=== PATIENT | female | born 1980 | race Two or more races ===

== ENCOUNTER 2016-07-24 10:18 | Emergency (ER) | payer OTHER ==
[~2016-07-24] VITALS: Ht 162.6 cm; Wt 79.8 kg
--- NOTE | 2016-07-24 10:50 | PHYS DOC ---
General Chief Complaint: VAGINAL BLEEDING Stated Complaint: VAGINAL BLEEDING/CRAMPS, 5 WEEKS PREG Time Seen by MD: 10:20 Source: patient Exam Limitations: no limitations Problems: History of Present Illness Initial Comments Pt is 36/F to ED c/o possible . Pt is now A1, LMP 4/ with + home urine test. No established OB, pt tried to make appointment a few weeks ago but was told she would not be seen until 12 wks gestation. Pt is monogamous, states that since Wednesday she's had low abdominal, b/l adnexal and flank tightness/discomfort as well as vaginal bleeding. Mild nausea , no emesis. Described as bright red, up to 2 pads/day no clots or solid materials passed. Pt mother last week pt has been very emotional and is tearful at times in ED. Pt has h/o incomplete miscarriage as well as retained placenta in past both requiring D/Cs. No fever/chills/dysuria/hematuria/dyspareunia/emesis/stool changes. ED VS: 98.2, 94, 18, 129/85, 96% RA. Timing/Duration: other (3 days, ) Severity: mild Modifying Factors: improves with other Associated Symptoms: nausea/vomiting, other Allergies: Coded Allergies: No Known Drug Allergies (Unverified , 07/24/16) Past Medical History Medical History: no pertinent history Surgical History: other (D/C x 2) MARKETING LEAD History: spontaneous , other Para: 3 : 5 LMP (Females 10-50): (05/30) Social History Smoker: cigarettes Alcohol: none Drugs: none Review of Systems Constitutional: denies chills, denies diaphoresis, denies fever, denies malaise Respiratory: denies cough, denies shortness of breath, denies wheezing Cardiovascular: denies chest pain, denies edema, denies palpitations, denies syncope Gastrointestinal: see HPI Genitourinary: see HPI Musculoskeletal: see HPI, denies joint swelling, denies neck pain Psychiatric/Neurological: denies headache, denies numbness, denies paresthesia Physical Exam General Appearance: WD/WN, mild distress (tearful) Eyes: bilateral eye normal inspection, bilateral eye PERRL, bilateral eye EOMI Ear, Nose, Throat: hearing grossly normal, normal ENT inspection, normal pharynx Neck: non-tender, supple Respiratory: normal breath sounds, no respiratory distress Cardiovascular: normal peripheral pulses, regular rate, rhythm, no edema Gastrointestinal: soft (BS diminished, mild general TTP no r/g/mass, neg mcburney/jang) Back: no vertebral tenderness, CVA tenderness (R) Extremities: normal inspection, no pedal edema 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 PHYSICIAN: CRUZ DA SILVA DO REASON: cramping/bleeding since Tues, LMP 05/30 PROCEDURE: OB <14 WKS W/TV Obstetrical ultrasound, 07/24/2016: History: Bleeding and cramping, Transabdominal and transvaginal scans were obtained. The uterus is enlarged. It contains a single gestational sac. The gestational sac contains a pole demonstrating a crown-rump length of 2.2 cm. This suggests suggests a gestational age of 8 weeks and 6 days and a sonographic EDC of 02/27/2017. motion and cardiac activity is present. The heart rate was 170 bpm. Adjacent to the gestational sac there is heterogeneous material probably representing subchorionic hemorrhage. This process measures 4.3 x 3.1 x 4.2 cm. The uterus is otherwise unremarkable. The ovaries are of normal size. No adnexal mass is seen. No free fluid is present in the pelvis. IMPRESSION: 1. Single viable intrauterine fetus of 8-9 weeks gestational age. 2. Moderate sized subchorionic hemorrhage. DICTATED AND SIGNED BY: ESPERANZA VALDEZ MD DATE: 07/24/16 1132 CC: PCP,UNKNOWN; CRUZ DA SILVA DO ~ Labs/urine reassuring. I discussed light activity/pelvic rest, stopping smoking and starting vitamins at length with pt and answered her questions. No bleeding thru ED course, no new/progressive sx. Pt reassured, expresses agreement/understanding with treatment plan. Departure Time of Disposition: 11:46 Disposition: 01 HOME, SELF-CARE Diagnosis: , subchorionic hemorrhage, tobaccoism Condition: STABLE Patient Instructions: Medicines During , Smoking Cessation, Subchorionic Hematoma Additional Instructions: Stop smoking today, seek medical assistance if necessary. Begin vitamins today. Pelvic rest and light activity until cleared by ADMIN PROG COORD. Aggressive hydration with gatorade, water. You will need to follow up with an obstetric specialist. Dr Corey, [facility] [phone] call today to schedule next available appointment. Return to ED with new or changing symptoms. CRUZ DA SILVA DO July 24, 2016 10:50
[2016-07-24 11:00] LABS: BASO # 0.1 x10^3/uL (0.0-0.2); BASO % 1 % (0-3); EOS # 0.1 x10^3/uL (0.0-0.7); EOS % 1 % (0-3); HEMOGLOBIN 12.8 g/dL (12.0-15.5); LYMPH % 27 % (24-48); MEAN CORPUSCULAR HEMOGLOBIN 30 pg (25-35); MEAN CORPUSCULAR HGB CONC 34 g/dL (31-37); MEAN CORPUSCULAR VOLUME 90 fL (79-100); MONO # 0.6 x10^3/uL (0.0-1.1); MONO % 6 % (0-9); NEUT # 7.1 x10^3uL (1.8-7.7); NEUT % 65 % (31-73); PLATELET COUNT 423 x10^3/uL (140-400); RED BLOOD COUNT 4.25 x10^6/uL (3.50-5.40); RED CELL DISTRIBUTION WIDTH 13.9 % (11.5-14.5); WHITE BLOOD COUNT 10.9 x10^3/uL (4.0-11.0)
[2016-07-24] MEDS ORDERED: IV NORMAL SALINE 1,000ML 1,000 ML IV SCH (11:00)
[2016-07-24] MEDS ORDERED: ONDANSETRON PF 4 MG/2 ML VIAL. IV ONE (11:00)
[2016-07-24 11:16] LABS: ALBUMIN 3.3 g/dL (3.4-5.0); CALCIUM 9.1 mg/dL (8.5-10.1); CREATININE 0.7 mg/dL (0.6-1.0); DIRECT BILIRUBIN 0.1 mg/dL (0.0-0.2); GFR 95.2; POTASSIUM 4.1 mmol/L (3.5-5.1); TOTAL BILIRUBIN 0.2 mg/dL (0.2-1.0); TOTAL PROTEIN 7.2 g/dL (6.4-8.2)
[2016-07-24 11:23] LABS: BACTERIA,URINE FEW /HPF (0-FEW); BILIRUBIN,URINE NEG (NEG); CLARITY,URINE CLOUDY; COLOR,URINE YELLOW; GLUCOSE,URINE NEG (NEG); NITRITE,URINE NEG (NEG); SQUAMOUS EPITHELIAL CELL,UR MOD /LPF; UROBILINOGEN,URINE 0.2 mg/dL (0.2 mg/dL); WBC,URINE 0 /HPF (0-4)
--- NOTE | 2016-07-24 11:38 | RAD ---
Obstetrical ultrasound, 07/24/2016: History: Bleeding and cramping, Transabdominal and transvaginal scans were obtained. The uterus is enlarged. It contains a single gestational sac. The gestational sac contains a pole demonstrating a crown-rump length of 2.2 cm. This suggests suggests a gestational age of 8 weeks and 6 days and a sonographic EDC of 02/27/2017. motion and cardiac activity is present. The heart rate was 170 bpm. Adjacent to the gestational sac there is heterogeneous material probably representing subchorionic hemorrhage. This process measures 4.3 x 3.1 x 4.2 cm. The uterus is otherwise unremarkable. The ovaries are of normal size. No adnexal mass is seen. No free fluid is present in the pelvis. IMPRESSION: 1. Single viable intrauterine fetus of 8-9 weeks gestational age. 2. Moderate sized subchorionic hemorrhage.
[2016-07-24 11:53] VITALS: BP 122/95
== END 2016-07-24 12:05 | disposition home or self-care (01) ==
LOC: ER 10:18
DX: O46.91 Antepartum hemorrhage, unspecified, first trimester (principal); O99.331 Smoking (tobacco) complicating pregnancy, first trimester; Z3A.08 8 weeks gestation of pregnancy
CPT/HCPCS: 36415; 76801; 76817; 80048; 80076; 81001; 83735; 84702; 85027; 96361; 96374; 99285; J2405; J7030

== ENCOUNTER 2020-04-24 14:43 | Emergency (ER) | payer OTHER ==
[~2020-04-24] VITALS: Ht 162.6 cm; Wt 84.1 kg
[2020-04-24] MEDS ORDERED: IV RINGERS SOLUTION,LACTATED 1,000 ML IV ONE (15:45)
[2020-04-24] MEDS ORDERED: IOHEXOL 300 MG/ML 75 ML VIAL. IV ONE (15:45)
[2020-04-24 16:04] LABS: BASO # 0.1 x10^3/uL (0.0-0.2); BASO % 1 % (0-3); EOS # 0.1 x10^3/uL (0.0-0.7); EOS % 1 % (0-3); HEMOGLOBIN 13.3 g/dL (12.0-15.5); LYMPH # 3.7 x10^3/uL (1.0-4.8); LYMPH % 22 % (24-48); MEAN CORPUSCULAR HEMOGLOBIN 29 pg (25-35); MEAN CORPUSCULAR HGB CONC 33 g/dL (31-37); MEAN CORPUSCULAR VOLUME 91 fL (79-100); MONO # 0.9 x10^3/uL (0.0-1.1); MONO % 5 % (0-9); NEUT # 11.9 x10^3uL (1.8-7.7); NEUT % 71 % (31-73); PLATELET COUNT 585 x10^3/uL (140-400); RED BLOOD COUNT 4.53 x10^6/uL (3.50-5.40); WHITE BLOOD COUNT 16.6 x10^3/uL (4.0-11.0)
[2020-04-24 16:05] LABS: CALCIUM 9.2 mg/dL (8.5-10.1); CREATININE 0.8 mg/dL (0.6-1.0); GFR 79.9; POTASSIUM 3.9 mmol/L (3.5-5.1)
--- NOTE | 2020-04-24 16:08 | RAD ---
CT abdomen and pelvis with contrast PQRS statement: CT scans at this facility use dose reduction including either automated exposure cont rol, iterative reconstructions, and /or weight based radiation dosing via mA and kV modification when appropriate to reduce radiation dose to as low as reasonably achievable. Contrast: 75 mL Isovue-370 intravenous contrast. HISTORY: Right lower quadrant abdominal pain. Abdomen findings: Lung bases unremarkable. Disc bulges lower lumbar spine with probable spinal canal stenosis at L5-S1. Liver, gallbladder, spleen, small accessory spleen, adrenals, pancreas and right k idney are unremarkable. Left renal interpolar 3 cm round hypodense lesion measuring 8 units in densit y consistent with cyst. The appendix is negative. No obstruction or inflammation the GI tract. No abd ominal fluid or adenopathy. Pelvis findings: There is mild prominence of the uterus. 2 cm hypodense focus right ovary. Left ovary , bladder, rectum and bones are unremarkable. No adenopathy. Miniscule volume of fluid cul-de-sac. IMPRESSION: 1. No acute process in the abdomen. Appendix is negative. 2. 2 cm hypodense lesion of the right ovary, most likely a follicle. No ovarian cyst is not excluded. This could be further assessed with pelvic sonography. 3. Other incidental findings as described above. Electronically signed by: Tomás Buckley MD (04/24/2020 4:06 PM) [facility]
[2020-04-24 16:09] LABS: AMPHETAMINE/METHAMPHETAMINE NEG (NEG); BARBITURATES NEG (NEG); BENZODIAZEPINES NEG (NEG); CANNABINOIDS POS (NEG); COCAINE NEG (NEG); METHADONE NEG (NEG); OPIATES NEG (NEG); PHENCYCLIDINE NEG (NEG)
[2020-04-24 16:10] LABS: ALBUMIN 3.7 g/dL (3.4-5.0); ALBUMIN/GLOBULIN RATIO 0.9 (1.0-1.7); TOTAL BILIRUBIN 0.4 mg/dL (0.2-1.0)
[2020-04-24 16:23] LABS: BACTERIA,URINE FEW /HPF (0-FEW); BILIRUBIN,URINE NEG (NEG); CLARITY,URINE CLEAR; COLOR,URINE YELLOW; GLUCOSE,URINE NEG (NEG); NITRITE,URINE NEG (NEG); SQUAMOUS EPITHELIAL CELL,UR MANY /LPF; UROBILINOGEN,URINE 0.2 mg/dL (0.2 mg/dL)
--- NOTE | 2020-04-24 16:48 | PHYS DOC ---
Past History Past Medical History: Other Additional Past Medical Histor: High Cholesterol Past Surgical History: Tubal ligation Additional Smoking Information: 1 pack per 2-3 days. Alcohol Use: Heavy Additional Alcohol Information: Drinks daily. 2-3 hard seltzer. Drug Use: None General Adult EDM: Chief Complaint: ABDOMINAL PAIN HPI: HPI: Patient is a [age] year old [sex] who presents with [] Review of Systems: Review of Systems: Constitutional: Denies fever or chills Eyes: Denies change in visual acuity HENT: Denies nasal congestion or sore throat Respiratory: Denies cough or shortness of breath Cardiovascular: Denies chest pain or edema GI: Denies abdominal pain, nausea, vomiting, bloody stools or diarrhea : Denies dysuria Musculoskeletal: Denies back pain or joint pain Integument: Denies rash Neurologic: Denies headache, focal weakness or sensory changes Endocrine: Denies polyuria or polydipsia Lymphatic: Denies swollen glands Psychiatric: Denies depression or anxiety Current Medications: Current Meds: Current Medications Medications (Trade) Dose Ordered Sig/Alcides Start Time Stop Time Status Last Admin Dose Admin Iohexol (Omnipaque 300 Mg/ml) 75 ml 1X ONCE 04/24/20 15:45 04/24/20 15:46 DC 04/24/20 15:50 75 ML Lactated Ringer's 1,000 ml @ 1,000 mls/hr 1X ONCE 04/24/20 15:45 04/24/20 16:44 DC 04/24/20 15:47 1,000 MLS/HR Allergies: Allergies: Allergies Coded Allergies Type Severity Reaction Last Updated Verified No Known Drug Allergies 04/24/20 No Physical Exam: PE: Constitutional: Well developed, well nourished, no acute distress, non-toxic appearance. HENT: Normocephalic, atraumatic, Eyes: EOMI, conjunctiva normal, no discharge. Neck: Normal range of motion, supple, Cardiovascular: S1/2 present, regular rhythm Lungs & Thorax: Speaking in full sentences, bilateral equal chest rise, no tachypnea or increased work of breathing Abdomen: soft, no tenderness, Skin: Warm, dry, no erythema, no rash. [] Back: No tenderness, no CVA tenderness. [] Extremities: No tenderness, no cyanosis, no lower extremity edema Neurologic: Alert and oriented X 3, normal motor function, normal sensory function, no focal deficits noted. [] Psychologic: Affect normal, judgement normal, mood normal. [] Current Patient Data: Labs: Laboratory Tests Test 04/24/20 15:00 White Blood Count 16.6 x10^3/uL (4.0-11.0) H Red Blood Count 4.53 x10^6/uL (3.50-5.40) Hemoglobin 13.3 g/dL (12.0-15.5) Hematocrit 41.0 % (36.0-47.0) Mean Corpuscular Volume 91 fL (79-100) Mean Corpuscular Hemoglobin 29 pg (25-35) Mean Corpuscular Hemoglobin Concent 33 g/dL (31-37) Red Cell Distribution Width 16.0 % (11.5-14.5) H Platelet Count 585 x10^3/uL (140-400) H Neutrophils (%) (Auto) 71 % (31-73) Lymphocytes (%) (Auto) 22 % (24-48) L Monocytes (%) (Auto) 5 % (0-9) Eosinophils (%) (Auto) 1 % (0-3) Basophils (%) (Auto) 1 % (0-3) Neutrophils # (Auto) 11.9 x10^3uL (1.8-7.7) H Lymphocytes # (Auto) 3.7 x10^3/uL (1.0-4.8) Monocytes # (Auto) 0.9 x10^3/uL (0.0-1.1) Eosinophils # (Auto) 0.1 x10^3/uL (0.0-0.7) Basophils # (Auto) 0.1 x10^3/uL (0.0-0.2) Platelet Estimate Pending Urine Collection Type Unknown Urine Color Yellow Urine Clarity Clear Urine pH 7.0 Urine Specific Gonzales 1.015 Urine Protein Neg (NEG-TRACE) Urine Glucose (UA) Neg mg/dL (NEG) Urine Ketones (Stick) Neg mg/dL (NEG) Urine Blood Small (NEG) Urine Nitrite Neg (NEG) Urine Bilirubin Neg (NEG) Urine Urobilinogen Dipstick 0.2 mg/dL (0.2 mg/dL) Urine Leukocyte Esterase Neg (NEG) Urine RBC 3-5 /HPF (0-2) Urine WBC 1-4 /HPF (0-4) Urine Squamous Epithelial Cells Many /LPF Urine Bacteria Few /HPF (0-FEW) Sodium Level 138 mmol/L (136-145) Potassium Level 3.9 mmol/L (3.5-5.1) Chloride Level 101 mmol/L (98-107) Carbon Dioxide Level 26 mmol/L (21-32) Anion Gap 11 (6-14) Blood Urea Nitrogen 9 mg/dL (7-20) Creatinine 0.8 mg/dL (0.6-1.0) Estimated GFR (Cockcroft-Gault) 79.9 BUN/Creatinine Ratio 11 (6-20) Glucose Level 85 mg/dL (70-99) Calcium Level 9.2 mg/dL (8.5-10.1) Total Bilirubin 0.4 mg/dL (0.2-1.0) Aspartate Amino Transferase (AST) 16 U/L (15-37) Alanine Aminotransferase (ALT) 22 U/L (14-59) Alkaline Phosphatase 80 U/L (46-116) Creatine Kinase 57 U/L (26-192) Total Protein 8.0 g/dL (6.4-8.2) Albumin 3.7 g/dL (3.4-5.0) Albumin/Globulin Ratio 0.9 (1.0-1.7) L Urine Opiates Screen Neg (NEG) Urine Methadone Screen Neg (NEG) Urine Barbiturates Neg (NEG) Urine Phencyclidine Screen Neg (NEG) Urine Amphetamine/Methamphetamine Neg (NEG) Urine Benzodiazepines Screen Neg (NEG) Urine Cocaine Screen Neg (NEG) Urine Cannabinoids Screen Pos (NEG) Urine Ethyl Alcohol Neg (NEG) Vital Signs: Vital Signs Date Time Temp Pulse Resp B/P (MAP) Pulse Ox O2 Delivery O2 Flow Rate FiO2 04/24/20 15:50 80 18 142/88 (106) 97 Room Air 04/24/20 14:45 98.2 EKG: EKG: [] Radiology/Procedures: Radiology/Procedures: IMAGING REPORT Signed PATIENT: VEE CUADRA ACCOUNT: [id number] : 1980 LOCATION: ER AGE: 40 SEX: F EXAM STATUS: REG ER ORD. PHYSICIAN: BAR CHAVIRA DO REASON: rlq pain, r/o appey PROCEDURE: CT ABD PELV W/ IV CONTRST ONLY CT abdomen and pelvis with contrast PQRS statement: CT scans at this facility use dose reduction including either automated exposure control, iterative reconstructions, and /or weight based radiation dosing via mA and kV modification when appropriate to reduce radiation dose to as low as reasonably achievable. Contrast: 75 mL Isovue-370 intravenous contrast. HISTORY: Right lower quadrant abdominal pain. Abdomen findings: Lung bases unremarkable. Disc bulges lower lumbar spine with probable spinal canal stenosis at L5-S1. Liver, gallbladder, spleen, small accessory spleen, adrenals, pancreas and right kidney are unremarkable. Left renal interpolar 3 cm round hypodense lesion measuring 8 units in density consistent with cyst. The appendix is negative. No obstruction or inflammation the GI tract. No abdominal fluid or adenopathy. Pelvis findings: There is mild prominence of the uterus. 2 cm hypodense focus right ovary. Left ovary, bladder, rectum and bones are unremarkable. No adenopathy. Miniscule volume of fluid cul-de-sac. IMPRESSION: 1. No acute process in the abdomen. Appendix is negative. 2. 2 cm hypodense lesion of the right ovary, most likely a follicle. No ovarian cyst is not excluded. This could be further assessed with pelvic sonography. 3. Other incidental findings as described above. Electronically signed by: Sandy Buckley MD (04/24/2020 4:06 PM) [facility] DICTATED AND SIGNED BY: SANDY BUCKLEY MD DATE: 04/24/20 1559 CC: DONAVON AQUINO; BAR CHAVIRA DO ~MTH0 0 *I reviewed CT abdominal images and abdominal aorta and infrarenal aorta less than 3 cm and 1.5 cm respectively in 2 dimensions, low suspicion for aortic dissection or aneurysm Heart Score: Risk Factors: Risk Factors: DM, Current or recent (<one month) smoker, HTN, HLP, family history of CAD, obesity. Risk Scores: Score 0 - 3: 2.5% MACE over next 6 weeks - Discharge Home Score 4 - 6: 20.3% MACE over next 6 weeks - Admit for Clinical Observation Score 7 - 10: 72.7% MACE over next 6 weeks - Early Invasive Strategies Course & Med Decision Making: Course & Med Decision Making Pertinent Labs and Imaging studies reviewed. (See chart for details) Symptoms concerning for either passed renal stone versus marijuana hyperemesis syndrome. I am leaning more towards marijuana use. Patient reported her abdominal pain significantly reduced after hot shower. Has smoked marijuana intermittently for more than a few years. CT images including her angiogram were reviewed by myself. Will discharge home with strict ED return precautions were given for recurrence of abdominal pain, back pain syncope chest pain or neurologic deficits. Encouraged urgent outpatient follow-up with PMD for urgent follow-up. Life-threatening processes were considered but are low suspicion at this time, given history, physical exam and ED workup. Pt was educated on all prescription medications and adverse effects. All patient's questions were answered and pt was stable at time of discharge. Life/limb-threatening differential includes but is not limited to, aortic dissection, aortic aneurysm, acute coronary syndrome, surgical abdomen (appendicitis, cholecystitis, ischemic bowel, strangulated hernia, etc), bowel obstruction or volvulus, bladder outlet obstruction, gastrointestinal bleeding, inflammatory bowel disease, peptic ulcer disease, ACS/CAD, sepsis, diverticular disease, ureterolithiasis, nephrolithiasis, ovarian or testicular torsion, ectopic , vaginal hemorrhage, or genitourinary infection. I spoken with the patient and her caregivers. I explained the patient's condition, diagnoses and treatment plan based on the information available to me at this time. I have answered the patient and her caregiver's questions and addressed any concerns. The patient and her caregivers have a good understanding of patient's diagnosis, condition and treatment plan as can be expected at this point. Vital signs have been stable. Patient's condition is stable and appropriate for discharge from the emergency department. Patient will pursue further outpatient evaluation with primary care physician or other designated or consulting physician as outlined in the discharge instructions. The patient and/or caregivers are agreeable to this plan of care and follow-up instructions have been explained in detail. The patient and/or caregivers have received these instructions in written form and have expressed an understanding of the discharge instructions. The patient and/or caregivers are aware that any significant change of condition or worsening of symptoms should prompt immediate return to this or the closest emergency department or call to 911. Gallo Disclaimer: Gallo Disclaimer: This electronic medical record was generated, in whole or in part, using a voice recognition dictation system. Departure Departure: Impression: Primary Impression: Abdominal pain Additional Impressions: Nausea and vomiting Marijuana use Disposition: 01 DC HOME SELF CARE/HOMELESS Condition: STABLE Referrals: DONAVON AQUINO (PCP) Patient Instructions: Abdominal Pain, Marijuana Abuse-Brief, Nausea and Vomiting Additional Instructions: EMERGENCY DEPARTMENT GENERAL DISCHARGE INSTRUCTIONS Thank you for coming to [facility] (ED) today and trusting us with you care. We trust that you had a positivie experience in our Emergency Department. If you wish to speak to the department management, you may call the director at [phone]. YOUR FOLLOW UP INSTRUCTIONS ARE FOLLOWS: 1. Do you have a private Doctor? If you do not have a private doctor, please ask for a resource list of physicians or clinics that may be able to assist you with follow up care. 2. The Emergency Physician has interpreted your x-rays. The X-Ray specialist will also review them. If there is a change in the findings, you will be notified in 48 hours when at all possible. 3. A lab test or culture has been done, your results will be reviewed and you will be notified if you need a change in treatment. ADDITIONAL INSTRUCTIONS AND INFORMATION: 1. Your care today has been supervised by a physician who is specially trained in emergency care. Many problems require more than one evaluation for a complete diagnosis and treatment. We recommend that you schedule your follow up appointment as recomme nded to ensure complete treatment of you illness or injury. If you are unable to obtain follow up care and continue to have a problem, or if your condition worsens, we recommend that you return to the ED. 2. We are not able to safely determine your condition over the phone nor are we able to give sound medical advice over the phone. For these safety reasons, if you call for medical advice we will ask you to come to the ED for further evaluation. 3. If you have any questions regarding these discharge instructions please call the ED at [phone]. SAFETY INFORMATION: In the interest of safety, wellness, and injury prevention; we encourage you to wear your sealbelt, if you smoke; quite smoking, and we encourage family to use a protective helmet for bicycling and other sporting events that present an increased risk for head injury. IF YOUR SYMPTOMS WORSEN OR NEW SYMPTOMS DEVELOP, OR YOU HAVE CONCERNS ABOUT YOUR CONDITION; OR IF YOUR CONDITION WORSENS WHILE YOU ARE WAITING FOR YOUR FOLLOW UP APPOINTMENT; EITHER CONTACT YOUR PRIMARY CARE DOCTOR, THE PHYSICIAN WHOSE NAME AND NUMBER YOU WERE GIVEN, OR RETURN TO THE ED IMMEDIATELY. Scripts Ondansetron (ONDANSETRON ODT) 4 Mg Tab.rapdis 4 MG PO Q6HRS for Nausea/Vomiting, #15 TAB Prov: BAR CHAVIRA DO 04/24/20 Capsaicin (CAPSAICIN) 42.5 Gm Cream..g. 1 MERLENE TP TID for nausea and vomiting for 7 Days, #42.5 GM 0 Refills Prov: BAR CHAVIRA DO 04/24/20 BAR CHAVIRA DO Apr 24, 2020 16:48
[2020-04-24 17:59] LABS: % ATYL 14 % (0-0); % BANDS 5 % (0-9); % BASOS 1 % (0-3); % LYMPHS 16 % (24-48); % MONOS 4 % (0-10); % SEGS 60 % (35-66)
[2020-04-24 18:05] LABS: PLT ESTIMATE ADEQUATE (ADEQUATE)
[2020-04-24 18:30] VITALS: BP 136/88
[2020-04-24] MEDS ORDERED: CAPS42.514 TP (18:38)
[2020-04-24] MEDS ORDERED: ONDA4TAB12 PO (18:38)
== END 2020-04-24 18:48 | disposition home or self-care (01) ==
LOC: ER 14:43
DX: R10.9 Unspecified abdominal pain (principal); R11.2 Nausea with vomiting, unspecified; F12.90 Cannabis use, unspecified, uncomplicated; E78.00 Pure hypercholesterolemia, unspecified; Z98.51 Tubal ligation status; F10.20 Alcohol dependence, uncomplicated; Y90.9 Presence of alcohol in blood, level not specified
CPT/HCPCS: 36415; 74177; 80053; 80307; 81001; 81025; 82550; 85007; 85025; 96360; 99285; J7120; Q0111; Q9967